=== PATIENT | male | born 1985 | race Caucasian/White ===

== ENCOUNTER 2017-01-31 20:12 | Emergency (ER) | payer SELFPAY ==
[2017-01-31 20:44] VITALS: BP 119/58; PULSE 79; TEMP 98.1; BMI 30.3
[2017-01-31] MEDS ORDERED: OXYCODONE/APAP 5/325MG COMBO TABLET PO ONE (21:02)
[2017-01-31] MEDS ORDERED: PENICILLIN V POTASSIUM 500 MG TABLET PO ONE (21:02)
[2017-01-31] MEDS ORDERED: IBUPROFEN 400 MG TABLET (FP) PO ONE ×2 (21:03→21:05)
[2017-01-31] MEDS ORDERED: OXYCODONE/APAP 5/325MG COMBO TABLET ONE (21:06)
--- NOTE | 2017-01-31 21:09 | PDOC ---
History of Present Illness - General Chief Complaint: Pain Stated Complaint: FACIAL SWELLING Time Seen by Provider: 01/31/17 20:56 History Source: Patient Exam Limitations: No Limitations - History of Present Illness Initial Comments: 01/31/17 21:03 31 yr male no medical history states he cracked a tooth on then it broke again last week. Pt has pain and swelling to the right side of the face. no fever no chills. Past History - Past Medical History Allergies/Adverse Reactions: Allergies Allergy/AdvReac Type Severity Reaction Status Date / Time No Known Allergies Allergy Verified 01/31/17 20:40 Home Medications: Ambulatory Orders Ibuprofen 800 mg PO TID PRN #30 tablet 01/31/17 Oxycodone HCl/Acetaminophen [Percocet 5-325 mg Tablet] 1 - 2 tab PO Q6H PRN #14 tab MDD 8 tabs 01/31/17 Penicillin V Potassium [Pen Vee K -] 500 mg PO QID #28 tablet 01/31/17 Asthma: Yes - Immunization History Immunization Up to Date: Yes - Psycho/Social/Smoking Cessation Hx Anxiety: No Suicidal Ideation: No Smoking Status: Yes Smoking History: Current every day smoker Number of Cigarettes Smoked Daily: 20 Information on smoking cessation initiated: No 'Breaking Loose' booklet given: 11/24/15 Hx Alcohol Use: No Drug/Substance Use Hx: Yes (Marijuana) Substance Use Type: None, Marijuana *Physical Exam - Vital Signs Last Vital Signs Temp Pulse Resp BP Pulse Ox 98.1 F 79 19 119/58 99 01/31/17 20:41 01/31/17 20:41 01/31/17 20:41 01/31/17 20:41 01/31/17 20:41 - Physical Exam General Appearance: Yes: Nourished, Appropriately Dressed, Mild Distress HEENT: positive: EOMI, KAYLEY, TMs Normal, Other (right side cheek swelling, tender to touch fractured tooth #5 ) Neck: negative: Tender Respiratory/Chest: positive: Lungs Clear, Normal Breath Sounds Cardiovascular: positive: Regular Rhythm, Regular Rate Gastrointestinal/Abdominal: positive: Normal Bowel Sounds, Soft Musculoskeletal: positive: Normal Inspection Extremity: positive: Normal Capillary Refill, Normal Inspection, Normal Range of Motion Integumentary: positive: Normal Color, Dry, Warm 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: 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: 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 NML intact, Fully Oriented, Alert, Normal Mood/ Affect, Normal Response, Motor Strength 5/5 Medical Decision Making - Medical Decision Making 01/31/17 21:04 cc: toothache, fractured tooth no fever, no chills pt able to eat and drink FROM of the jaw will refer to the dental clinic at [facility] and Farooq leonard as directed percocet for severe pain motrin for moderate pain ice packs to face pt agrees with plan all questions asked and answered 01/31/17 21:12 *DC/Admit/Observation/Transfer Diagnosis at time of Disposition: Fracture, tooth Qualifiers: Encounter type: initial encounter Fracture type: closed Qualified Code(s): S02.5XXA - Fracture of tooth (traumatic), initial encounter for closed fracture - Prescriptions Prescriptions: Ibuprofen 800 mg PO TID PRN #30 tablet PRN Reason: Moderate Pain Penicillin V Potassium [Pen Vee K -] 500 mg PO QID #28 tablet Oxycodone HCl/Acetaminophen [Percocet 5-325 mg Tablet] 1 - 2 tab PO Q6H PRN #14 tab MDD 8 tabs PRN Reason: Severe Pain - Patient Instructions Additional Instructions: gargle with warm salt water 4-5 times a day take percocet for pain take the PEn VK as directed for 10 days take motrin with the percocet for pain as well apply ice every 2hrs for 20 minutes to area of pain Follow at [facility] call Located in: [facility] Address: [facility] [address], [place] [address] H or call [facility] Address: [address] [place] [address] Hours: Closed now
== END 2017-01-31 21:15 | disposition home or self-care (01) ==
LOC: JERFT 20:12
DX: S02.5XXA Fracture of tooth (traumatic), initial encounter for closed fracture (principal); X58.XXXA Exposure to other specified factors, initial encounter; Y93.89 Activity, other specified; Y92.038 Other place in apartment as the place of occurrence of the external cause
CPT/HCPCS: 99281-25

== ENCOUNTER 2017-06-23 01:15 | Emergency (ER) | payer OTHER ==
[2017-06-23 01:29] VITALS: BMI 30.3
[2017-06-23] MEDS ORDERED: MAG HYDROX/AL HYDROX/SIMETH 30 ML UNIT-DOSE CUP PO ONE (03:14)
[2017-06-23] MEDS ORDERED: LIDOCAINE VISCOUS 2% ORAL/TOP 20 ML UNIT-DOSE CUP MM ONE (03:14)
[2017-06-23] MEDS ORDERED: RANITIDINE HCL 150 MG TABLET (FP) PO ONE (03:17)
--- NOTE | 2017-06-23 03:26 | PDOC ---
History of Present Illness - General Chief Complaint: Pain, Acute Stated Complaint: ABD PAIN Time Seen by Provider: 06/23/17 02:01 History Source: Patient Exam Limitations: No Limitations - History of Present Illness Initial Comments: 06/23/17 03:26 Patient is a 32 year old male with no pmhx c/o epigastric pain x 3 days. States was out drinking 4 days ago, next morning developed epigastric pain with is crampy like 8/10 assoc/w diarrhea. No N/V. States she has had similar pain about 1 year ago also after drinking. He should have follow up but did not. Requesting to have and IV PMD: none GENERAL/CONSTITUTIONAL: [No fever or chills. No weakness. No weight change.] HEAD, EYES, EARS, NOSE AND THROAT: [No change in vision. No ear pain or discharge. No sore throat.] CARDIOVASCULAR: [No chest pain or shortness of breath.] RESPIRATORY: [No cough, wheezing, or hemoptysis.] GASTROINTESTINAL: [No nausea, vomiting, diarrhea or constipation. No rectal bleeding.] GENITOURINARY: [No dysuria, frequency, or change in urination.] MUSCULOSKELETAL: [No joint or muscle swelling or pain. No neck or back pain.] SKIN AND BREASTS: [No rash or easy bruising.] NEUROLOGIC: [No headache, vertigo, loss of consciousness, or loss of sensation.] PSYCHIATRIC: [No depression or anxiety.] ENDOCRINE: [No increased thirst. No abnormal weight change.] HEMATOLOGIC/LYMPHATIC: [No anemia, easy bleeding, or history of blood clots.] ALLERGIC/IMMUNOLOGIC: [No hives or skin allergy. No latex allergy.] GENERAL: [The patient is awake, alert, and fully oriented, in no acute distress , found sleeping.] HEAD: [Normal with no signs of trauma.] EYES: [Pupils equal, round and reactive to light, extraocular movements intact, sclera anicteric, conjunctiva clear.] ENT: [Ears normal, nares patent, oropharynx clear without exudates. Moist mucous membranes.] NECK: [Normal range of motion, supple without lymphadenopathy, JVD, or masses.] LUNGS: [Breath sounds equal, clear to auscultation bilaterally. No wheezes, and no crackles.] HEART: [Regular rate and rhythm, normal S1 and S2 without murmur, rub.] ABDOMEN: [Soft, (+) tenderness epigastrum, nontender RUQ, normoactive bowel sounds. No guarding, no rebound. No masses.] EXTREMITIES: [Normal range of motion, no edema. No clubbing or cyanosis. No cords, erythema, or tenderness.] NEUROLOGICAL: [Cranial nerves II through XII grossly intact. Normal speech, normal gait.] PSYCH: [Normal mood, normal affect.] SKIN: [Warm, Dry, normal turgor, no rashes or lesions noted.] Past History - Past Medical History Allergies/Adverse Reactions: Allergies Allergy/AdvReac Type Severity Reaction Status Date / Time No Known Allergies Allergy Verified 06/23/17 01:27 Home Medications: Ambulatory Orders NK [No Known Home Medication] 06/23/17 Asthma: Yes COPD: No - Immunization History Immunization Up to Date: Yes - Suicide/Smoking/Psychosocial Hx Smoking Status: Yes Smoking History: Current every day smoker Have you smoked in the past 12 months: No Number of Cigarettes Smoked Daily: 8 Information on smoking cessation initiated: No 'Breaking Loose' booklet given: 11/24/15 Hx Alcohol Use: No Drug/Substance Use Hx: No Substance Use Type: None, Marijuana *Physical Exam - Vital Signs Last Vital Signs Temp Pulse Resp BP Pulse Ox 98.1 F 69 20 141/80 95 06/23/17 01:27 06/23/17 01:27 06/23/17 01:27 06/23/17 01:27 06/23/17 01:27 Medical Decision Making - Medical Decision Making 06/23/17 05:19 Patient is a 32 year old male with no pmhx c/o epigastric pain x 3 days. States was out drinking 4 days ago, next morning developed epigastric pain with is crampy like 02/20 assoc/w diarrhea. Patient in no acute distress on exam mild tenderness to epigastrium consider alcohol gastritis Patient treated with Zantac 200 mg by mouth, Maalox 30 mg by mouth plus viscous lidocaine 10 ml po Patient slept the whole night is feeling better now. Tolerating by mouth. I discussed the physical exam findings, ancillary test results and final diagnoses with the patient. I answered all of the patient's questions. The patient was satisfied with the care received and felt comfortable with the discharge plan and treatment plan. The Patient agrees to follow up with the primary care physician within 24-72 hours. *DC/Admit/Observation/Transfer Diagnosis at time of Disposition: Epigastric pain - Discharge Dispostion Disposition: HOME Condition at time of disposition: Stable - Referrals Referrals: Tam Ladd MD [Staff Physician] - - Patient Instructions Printed Discharge Instructions: DI for Epigastric Pain Additional Instructions: Your Discharge Instructions: You must call primary care physician within 24 hours to arrange follow-up. Return to the Emergency Department with any new, persistent or worsening symptoms, for fever, chills, SOB, dizziness or any other concerning changes that may occur. You must follow-up with the slot operations manager. Watch her diet, no alcohol, fatty foods. - Post Discharge Activity
[2017-06-23] MEDS ORDERED: MAG HYDROX/AL HYDROX/SIMETH 30 ML UNIT-DOSE CUP ONE (04:13)
[2017-06-23] MEDS ORDERED: LIDOCAINE VISCOUS 2% ORAL/TOP 20 ML UNIT-DOSE CUP ONE (04:13)
[2017-06-23] MEDS ORDERED: RANITIDINE HCL 150 MG TABLET (FP) ONE (04:13)
[2017-06-23 06:23] VITALS: BP 113/66; PULSE 64; TEMP 97.6
== END 2017-06-23 07:18 | disposition home or self-care (01) ==
LOC: JER 01:15
DX: R10.13 Epigastric pain (principal)
CPT/HCPCS: 99281-25

== ENCOUNTER 2021-12-13 19:15 | Emergency (ER) | payer OTHER ==
[2021-12-13 19:27] VITALS: BP 156/77; PULSE 98; TEMP 100.8; BMI 29.0
[2021-12-13] MEDS ORDERED: ALBUTEROL SO4 2.5/IPRATROPIUM 0.5 INH SOL 3 ML VIAL.NEB. NEB ONE ×4 (20:08→21:18)
[2021-12-13] MEDS ORDERED: IBUPROFEN 600 MG TABLET (FP) PO ONE ×2 (20:09→20:13)
== END 2021-12-13 22:09 | disposition home or self-care (01) ==
LOC: FER 19:15
PROC: 3E0F7GC Introduction of Other Therapeutic Substance into Respiratory Tract, Via Natural or Artificial Opening (ICD-10-PCS; principal; 2021-12-13)
PROC: 3E0F7GC Introduction of Other Therapeutic Substance into Respiratory Tract, Via Natural or Artificial Opening (ICD-10-PCS; 2021-12-13)
DX: R09.81 Nasal congestion (principal); R05.1 Acute cough; J02.9 Acute pharyngitis, unspecified; J09.X2 Influenza due to identified novel influenza A virus with other respiratory manifestations
CPT/HCPCS: 0241U-QW; 99283-25

== ENCOUNTER 2022-05-26 10:23 | Emergency (ER) | payer OTHER ==
[2022-05-26 10:29] VITALS: BP 154/94; PULSE 101; RESP 18; TEMP 97.7; BMI 31.6
[2022-05-26] MEDS ORDERED: ALBUTEROL SO4 2.5/IPRATROPIUM 0.5 INH SOL 3 ML VIAL.NEB. NEB ONE (11:14)
[2022-05-26] MEDS ORDERED: predniSONE 20 MG TABLET (UD) PO ONE (11:14)
[2022-05-26] MEDS ORDERED: predniSONE 20 MG TABLET (UD) ONE (11:24)
== END 2022-05-26 12:17 | disposition home or self-care (01) ==
LOC: JERFT 10:23
PROC: 3E0F7GC Introduction of Other Therapeutic Substance into Respiratory Tract, Via Natural or Artificial Opening (ICD-10-PCS; principal; 2022-05-26)
DX: J40 Bronchitis, not specified as acute or chronic (principal)
CPT/HCPCS: 71046-TC-FY; 99284-25

== ENCOUNTER 2022-10-31 10:47 | Emergency (ER) | payer OTHER ==
[2022-10-31 11:06] VITALS: BP 140/63; PULSE 91; RESP 17; TEMP 98.9; BMI 30.3
[2022-10-31] MEDS ORDERED: ONDANSETRON *ODT* 4 MG TABLET SL ONE (12:12)
[2022-10-31] MEDS ORDERED: KETOROLAC TROMETHAMINE 30 MG/1 ML VIAL IM ONE (12:12)
[2022-10-31] MEDS ORDERED: ONDANSETRON *ODT* 4 MG TABLET ONE (12:18)
[2022-10-31] MEDS ORDERED: KETOROLAC TROMETHAMINE 30 MG/1 ML VIAL ONE (12:18)
== END 2022-10-31 12:51 | disposition home or self-care (01) ==
LOC: JERFT 10:47
PROC: 3E023GC Introduction of Other Therapeutic Substance into Muscle, Percutaneous Approach (ICD-10-PCS; principal; 2022-10-31)
DX: J02.9 Acute pharyngitis, unspecified (principal); R50.9 Fever, unspecified; M79.10 Myalgia, unspecified site; R59.0 Localized enlarged lymph nodes; Z20.822 Contact with and (suspected) exposure to COVID-19
CPT/HCPCS: 0241U-QW; 87651; 96372; 99284-25; Q0162

== ENCOUNTER 2023-06-29 16:30 | Emergency (ER) | payer OTHER ==
[2023-06-29 16:36] VITALS: BP 117/76; PULSE 84; RESP 18; TEMP 97.8; BMI 30.9
== END 2023-06-29 19:15 | disposition left against medical advice (07) ==
LOC: JERFT 16:30
DX: M25.512 Pain in left shoulder (principal); M54.2 Cervicalgia; G47.00 Insomnia, unspecified
CPT/HCPCS: 99281-25

== ENCOUNTER 2023-07-10 13:59 | Emergency (ER) | payer OTHER ==
[2023-07-10] MEDS ORDERED: SODIUM CHLORIDE 0.9% 500 ML INFUS.BAG IV ONE (14:06)
[2023-07-10] MEDS ORDERED: ONDANSETRON 4 MG/2 ML VIAL IVPUSH ONE (14:06)
[2023-07-10] MEDS ORDERED: ACETAMINOPHEN 1000 MG/100 ML BAG IVPB ONE (14:06)
[2023-07-10] MEDS ORDERED: FAMOTIDINE 20 MG/50 ML IVPB 20 MG/50 ML MG IVPB ONE ×2 (14:06→14:19)
[2023-07-10 14:10] VITALS: BP 152/88; PULSE 58; RESP 20; TEMP 98.2; BMI 30.9
[2023-07-10] MEDS ORDERED: ACETAMINOPHEN INJECTION 100 ML IVPB ONE (14:19)
[2023-07-10] MEDS ORDERED: ONDANSETRON 4 MG/2 ML VIAL ONE (14:19)
[2023-07-10 15:24] LABS: HEMATOCRIT 44.9 % (35.4-49); HEMOGLOBIN 15.3 G/dL (11.7-16.9); MCHC 34.1 g/dl (32.0-35.9); MEAN CELL VOLUME 96.8 fl (80-96); MEAN PLT VOLUME 8.1 fl (7.5-11.1); PLATELET COUNT 217.2 10^3/uL (134-434); RBC 4.64 10^6/uL (4.00-5.60); RDW 12.7 % (11.9-15.9); WHITE BLOOD COUNT 9.7 10^3/uL (4.0-10.8)
[2023-07-10 15:28] LABS: ALBUMIN 4.6 g/dl (3.4-5.0); BILIRUBIN,TOTAL 0.8 mg/dl (0.2-1); CALCIUM 9.3 mg/dl (8.5-10.1); CREATININE 0.7 mg/dl (0.6-1.3)
[2023-07-10] MEDS ORDERED: KETOROLAC TROMETHAMINE 15 MG/ML VIAL IVPUSH ONE (15:53)
[2023-07-10] MEDS ORDERED: MAG HYDROX/AL HYDROX/SIMETH 30 ML UNIT-DOSE CUP PO ONE (15:53)
[2023-07-10] MEDS ORDERED: MAG HYDROX/AL HYDROX/SIMETH 30 ML UNIT-DOSE CUP ONE (16:15)
[2023-07-10] MEDS ORDERED: KETOROLAC TROMETHAMINE 15 MG/ML VIAL ONE (16:15)
[2023-07-10 16:31] LABS: PLATELET ESTIMATE ADEQUATE
== END 2023-07-10 17:22 | disposition home or self-care (01) ==
LOC: FER 13:59
PROC: 3E033GC Introduction of Other Therapeutic Substance into Peripheral Vein, Percutaneous Approach (ICD-10-PCS; principal; 2023-07-10)
PROC: 3E033NZ Introduction of Analgesics, Hypnotics, Sedatives into Peripheral Vein, Percutaneous Approach (ICD-10-PCS; 2023-07-10)
PROC: 3E0333Z Introduction of Anti-inflammatory into Peripheral Vein, Percutaneous Approach (ICD-10-PCS; 2023-07-10)
PROC: 3E033GC Introduction of Other Therapeutic Substance into Peripheral Vein, Percutaneous Approach (ICD-10-PCS; 2023-07-10)
DX: R10.13 Epigastric pain (principal); R11.2 Nausea with vomiting, unspecified; R19.7 Diarrhea, unspecified
CPT/HCPCS: 36415; 80053; 83690; 85027; 99284-25

== ENCOUNTER 2023-07-20 18:34 | Emergency (ER) | payer OTHER ==
[2023-07-20 19:04] VITALS: TEMP 98.1; BMI 30.9
[2023-07-20 21:08] VITALS: BP 120/72; PULSE 75; RESP 19
== END 2023-07-20 21:10 | disposition home or self-care (01) ==
LOC: JER 18:34
DX: R10.11 Right upper quadrant pain (principal); K80.20 Calculus of gallbladder without cholecystitis without obstruction
CPT/HCPCS: 76705-TC; 99284-25

== ENCOUNTER 2024-02-21 18:53 | Emergency (ER) | payer OTHER ==
[2024-02-21 19:11] VITALS: BP 117/78; PULSE 89; RESP 20; TEMP 99; BMI 30.3
== END 2024-02-22 00:22 | disposition home or self-care (01) ==
LOC: JER 18:53 → JERFT 18:53
DX: R09.81 Nasal congestion (principal); R05.9 Cough, unspecified; B34.9 Viral infection, unspecified; Z20.822 Contact with and (suspected) exposure to COVID-19
CPT/HCPCS: 0241U-QW; 99283-25